=== PATIENT | male | born 1975 | race Caucasian/White ===

== ENCOUNTER 2018-05-17 11:32 | Emergency (ER) | payer OTHER ==
[~2018-05-17] VITALS: Ht 172.7 cm; Wt 122.5 kg
[2018-05-17] MEDS ORDERED: METFORMIN HCL500 M1 PO (11:44)
--- NOTE | 2018-05-17 21:02 | EKG ---
[facility] [address] [place], [place] [address] Signed Normal sinus rhythm Normal ECG No previous ECGs available Confirmed by CLEOPATRA DASH DO ([id number]) on 05/17/2018 9:02:30 PM Electronically Signed By: CLEOPATRA DASH DO 05/17/182101 PATIENT NAME: KIRILL FERRO Electrocardiogram DATE OF : 71 PHYSICIAN: CLEOPATRA DASH DO REPORT #: [id number] REPORT IS CONFIDENTIAL AND NOT TO BE RELEASED WITHOUT AUTHORIZATION
== END 2018-05-17 13:27 | disposition home or self-care (01) ==
LOC: ED 11:32
DX: T14.8XXA Other injury of unspecified body region, initial encounter (principal); R07.9 Chest pain, unspecified; M54.5 Low back pain; X58.XXXA Exposure to other specified factors, initial encounter; Z79.84 Long term (current) use of oral hypoglycemic drugs
CPT/HCPCS: 71045; 80053; 84484; 85025; 93005; 93010; 99285-25